=== PATIENT | female | born 2000 | race Two or more races ===

== ENCOUNTER 2024-02-20 01:19 | Emergency (ER) | payer BC ==
[~2024-02-20] VITALS: Ht 175.3 cm; Wt 122.7 kg
[2024-02-20 01:25] VITALS: BP 133/71; PULSE 96; RESP 20; O2SAT 98
== END 2024-02-20 03:33 | disposition left against medical advice (07) ==
LOC: ER 01:19
DX: R11.0 Nausea (principal); F10.10 Alcohol abuse, uncomplicated; Z53.21 Procedure and treatment not carried out due to patient leaving prior to being seen by health care provider